=== PATIENT | male | born 1945 | race Caucasian/White ===

== ENCOUNTER 2018-01-30 08:26 | Day surgery (SDC) | payer MEDICARE, OTHER ==
[2018-01-30] MEDS: NS 1,000 ML IV (08:45)
[2018-01-30] MEDS ORDERED: PROPOFOL 200 MG/20 ML VIAL As Ordered ×2 (09:42)
[2018-01-30] MEDS ORDERED: hydrALAZINE INJ 20 MG/ML VIAL As Ordered (09:45)
== END 2018-01-30 10:36 | disposition home or self-care (01) ==
LOC: M OPP 08:26
DX: K64.0 First degree hemorrhoids (principal); K63.5 Polyp of colon; D12.0 Benign neoplasm of cecum; K57.30 Diverticulosis of large intestine without perforation or abscess without bleeding; R19.5 Other fecal abnormalities; I10 Essential (primary) hypertension; E78.00 Pure hypercholesterolemia, unspecified; Z79.82 Long term (current) use of aspirin; Z79.899 Other long term (current) drug therapy
CPT/HCPCS: 45380

== ENCOUNTER → 2020-05-04 | Outpatient (CLI) | payer MEDICARE, OTHER ==
[~2020-05-04] MED LIST: ASPI81TA26 PO; ATEN25TA PO; ATOR1TAB21 PO; HYDR12CA PO; QUIN1TAB3 PO; SINUTAB PO
--- NOTE | 2020-05-06 16:44 | REP ---
LUMBOSACRAL SPINE SERIES HISTORY: Sciatica after a fall. TECHNIQUE: Five views of the lumbosacral spine performed. FINDINGS: There is no compression fracture or malalignment. There is normal lumbar lordosis. There is mild diffuse spurring. There is mild disc space narrowing and subchondral sclerosis at L3-4 and L4-5. There is sclerosis and spurring of the posterior facet joints at L4-5 and L5-S1. The posterior elements are intact. IMPRESSION: Degenerative changes without evidence of fracture or dislocation. MTDD
--- NOTE | 2020-05-06 16:45 | REP ---
LEFT HIP SERIES HISTORY: Pain after a fall one week ago. TECHNIQUE: Two views of the left hip are performed. FINDINGS: There is no acute fracture or dislocation. Mild degenerative changes are seen at the hip joint with mild joint space narrowing and subchondral sclerosis. There are mild vascular calcifications of the adjacent arterial structures. IMPRESSION: Mild degenerative changes. No fracture or dislocation. MTDD
== END ==
LOC: M WUC 13:26
PROVIDERS: ATTEND Physician Assistant
DX: S70.02XA Contusion of left hip, initial encounter (principal); X58.XXXA Exposure to other specified factors, initial encounter; Y92.89 Other specified places as the place of occurrence of the external cause; M54.17 Radiculopathy, lumbosacral region; M51.36 Other intervertebral disc degeneration, lumbar region

== ENCOUNTER → 2022-01-27 | Outpatient (REF) | payer MEDICARE, OTHER | LOC: M LAB REF 12:25 | PROVIDERS: ATTEND Internal Medicine | DX: I10 Essential (primary) hypertension (principal) ==

== ENCOUNTER → 2022-02-23 | Outpatient (CLI) | payer MEDICARE, OTHER | LOC: M RAD 09:28 | PROVIDERS: ATTEND Internal Medicine | DX: I10 Essential (primary) hypertension (principal) ==

== ENCOUNTER → 2022-03-16 | Outpatient (REF) | payer MEDICARE, OTHER | LOC: M SMT 10:14 | PROVIDERS: ATTEND Urology | DX: R97.20 Elevated prostate specific antigen [PSA] (principal) ==

== ENCOUNTER → 2022-12-02 | Outpatient (CLI) | payer MEDICARE, OTHER | LOC: M PLALAB 14:44 | PROVIDERS: ATTEND Urology | DX: C61 Malignant neoplasm of prostate (principal) ==

== ENCOUNTER → 2024-01-24 | Outpatient (CLI) | payer MEDICARE, OTHER ==
[~2024-01-24] MED LIST changes: +PROHANCE 279.3MG/ML 15ML VIAL ONE
== END ==
LOC: M PLAIMG 14:01
PROVIDERS: ATTEND Urology
DX: C61 Malignant neoplasm of prostate (principal)
CPT/HCPCS: 72197; A9576

== ENCOUNTER → 2024-07-19 | Outpatient (REF) | payer MEDICARE, OTHER ==
[~2024-07-19] MED LIST changes: -PROHANCE 279.3MG/ML 15ML VIAL ONE
== END ==
LOC: M LAB REF 12:17
PROVIDERS: ATTEND Internal Medicine
DX: M10.9 Gout, unspecified (principal)

== ENCOUNTER → 2024-12-21 | Outpatient (CLI) | payer MEDICARE, OTHER ==
[~2024-12-21] MED LIST changes: +LISI40TA4; +RELU120T PO; +SPIR-10
== END ==
LOC: M ONCR 10:01
PROVIDERS: ATTEND General Practice
DX: C61 Malignant neoplasm of prostate (principal); Z87.891 Personal history of nicotine dependence; Z79.82 Long term (current) use of aspirin; Z79.899 Other long term (current) drug therapy

== ENCOUNTER → 2025-03-07 | Outpatient (RCR) | payer MEDICARE, OTHER ==
[~2025-03-07] MED LIST changes: +CIPR750T2 PO; +HYDR12.510 PO; -HYDR12CA PO; +LACT20EL PO; +LISI40TA10; -LISI40TA4; +LORA1TAB23 PO; +TAMS-18 PO
== END ==
LOC: M ONCR 02-05 14:02
PROVIDERS: ATTEND General Practice
DX: Z51.0 Encounter for antineoplastic radiation therapy (principal); C61 Malignant neoplasm of prostate

== ENCOUNTER 2025-03-14 09:57 | Outpatient (RCR) | payer MEDICARE, OTHER | END 2025-04-07 | LOC: M ONCR 09:57 | PROVIDERS: ATTEND General Practice | DX: Z51.0 Encounter for antineoplastic radiation therapy (principal); C61 Malignant neoplasm of prostate ==

== ENCOUNTER → 2025-04-30 | Outpatient (REF) | payer MEDICARE, OTHER | LOC: M LAB REF 12:14 | PROVIDERS: ATTEND Family Medicine | DX: M10.072 Idiopathic gout, left ankle and foot (principal) ==

== ENCOUNTER → 2025-06-18 | Outpatient (CLI) | payer MEDICARE, OTHER | LOC: M ONCR 10:06 | PROVIDERS: ATTEND General Practice | DX: C61 Malignant neoplasm of prostate (principal); R97.21 Rising PSA following treatment for malignant neoplasm of prostate; Z92.3 Personal history of irradiation; Z72.89 Other problems related to lifestyle; Z77.090 Contact with and (suspected) exposure to asbestos; Z79.818 Long term (current) use of other agents affecting estrogen receptors and estrogen levels; Z79.82 Long term (current) use of aspirin; Z79.899 Other long term (current) drug therapy; Z87.891 Personal history of nicotine dependence ==